=== PATIENT | female | born 1970 | race American Indian/Alaskan Native ===

== ENCOUNTER 2019-06-07 06:35 | Emergency (ER) | payer OTHER ==
[2019-06-07] MEDS ORDERED: MORPHINE IV ONE (07:01)
--- NOTE | 2019-06-07 07:02 | Emergency Department Report ---
ED General Adult HPI - General Chief complaint: Fall Stated complaint: NECK/BACK PAIN Time Seen by Provider: 06/07/19 06:52 Source: patient, EMS (verbal report received from EMS. EMS documentation was reviewed.), RN notes reviewed Mode of arrival: Stretcher Limitations: Physical Limitation - History of Present Illness Initial comments: This is a 49-year-old female, who is not known to this provider previously. The patient is brought to the hospital by EMS after a reported work-related incident. Patient reports that she was working at her job, when some boxes fell onto her. Apparently, the boxes were approximately 18 pounds, as per verbal report from EMS. The boxes hit her lower back. They did not hit any other part of her body. As per EMS documentation, patient was found fully immobilized on a long spinal board, and she was complaining of back pain after having 5-6 boxes fall onto her back, knocking her down onto the trailer floor. She did not have any loss of consciousness. Staff on scene advised the boxes were less than 18 pounds. 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 Patient indicated no symptoms prior to the reported accident. The patient indicates the pain is sharp and aching and throbbing, increases with palpation, decreases with rest. The patient makes no complaints of extremity weakness or numbness. The patient makes no complaint of saddle anesthesia. -: Sudden Location: back Radiation: non-radiation Quality: aching Consistency: constant Improves with: rest Worsens with: movement - Related Data Previous Rx's Medication Instructions Recorded Last Taken Type Acetaminophen [Non-Aspirin Extra 500 mg PO Q6HR PRN #30 tablet 06/07/19 Unknown Rx Strength] Ibuprofen [Motrin] 600 mg PO Q8H PRN #30 tablet 06/07/19 Unknown Rx Lidocaine [Lidoderm] 1 each TP QDAY PRN #5 adh..patch 06/07/19 Unknown Rx methOCARBAMOL [Robaxin TAB] 1,500 mg PO TID PRN #30 tab 06/07/19 Unknown Rx Allergies Allergy/AdvReac Type Severity Reaction Status Date / Time erythromycin base Allergy Unknown Verified 06/07/19 06:52 [From Erythrocin] ED Review of Systems ROS: Stated complaint: NECK/BACK PAIN Other details as noted in HPI Constitutional: denies: fever Eyes: denies: eye discharge ENT: denies: epistaxis Respiratory: denies: cough Cardiovascular: denies: syncope Gastrointestinal: denies: abdominal pain Musculoskeletal: back pain, myalgia Neurological: denies: weakness, numbness, paresthesias Psychiatric: anxiety ED Past Medical Hx - Medications Home Medications: Home Medications Medication Instructions Recorded Confirmed Last Taken Type Acetaminophen [Non-Aspirin Extra 500 mg PO Q6HR PRN #30 tablet 06/07/19 Unknown Rx Strength] Ibuprofen [Motrin] 600 mg PO Q8H PRN #30 tablet 06/07/19 Unknown Rx Lidocaine [Lidoderm] 1 each TP QDAY PRN #5 adh..patch 06/07/19 Unknown Rx methOCARBAMOL [Robaxin TAB] 1,500 mg PO TID PRN #30 tab 06/07/19 Unknown Rx ED Physical Exam - General Limitations: No Limitations General appearance: alert, anxious, in distress - Head Head exam: Present: atraumatic, normocephalic - Eye Eye exam: Present: normal appearance, EOMI. Absent: nystagmus - ENT ENT exam: Present: normal exam, normal orophraynx, mucous membranes moist, normal external ear exam - Neck Neck exam: Present: normal inspection, full ROM. Absent: tenderness, meningismus - Respiratory Respiratory exam: Present: normal lung sounds bilaterally. Absent: respiratory distress - Cardiovascular Cardiovascular Exam: Present: regular rate, normal rhythm, normal heart sounds. Absent: bradycardia, tachycardia, irregular rhythm, systolic murmur, diastolic murmur, rubs, gallop - GI/Abdominal GI/Abdominal exam: Present: soft. Absent: distended, tenderness, guarding, rebound, rigid, pulsatile mass - Extremities Exam Extremities exam: Present: normal inspection, full ROM, other (2+ pulses noted in the bilateral upper, lower extremities. Compartments soft. No long bony tenderness. The pelvis is stable.). Absent: pedal edema, joint swelling, calf tenderness - Back Exam Back exam: Present: normal inspection, full ROM, tenderness, paraspinal tenderness, vertebral tenderness, other (there is no midline cervical spine tenderness. There is no proximal thoracic tenderness. There is proximal lumbar spine tenderness. There is para lumbar spinal tenderness). Absent: CVA tenderness (R), CVA tenderness (L) - Neurological Exam Neurological exam: Present: alert, oriented X3, other (Extraocular movements intact. Tongue midline. No facial droop. Facial sensation intact to light touch in the V1, V2, V3 distribution bilaterally. 5 and 5 strength in 4 extremities.. Sensation is intact to light touch in 4 extremities.). Absent: motor sensory deficit - Psychiatric Psychiatric exam: Present: anxious - Skin Skin exam: Present: warm, dry, intact, normal color. Absent: rash ED Course Vital Signs 06/07/19 06/07/19 07:15 08:38 Temperature 98.3 F Pulse Rate 89 88 Respiratory 18 18 Rate Blood Pressure 121/69 Blood Pressure 116/78 [Left] O2 Sat by Pulse 100 99 Oximetry - Reevaluation(s) Reevaluation #1: 06/07/19 07:39 Differential diagnosis, including not limited to: Paraspinal pain, fracture, contusion, musculoskeletal pain Assessment and plan: 49-year-old female presenting with lower back pain after boxes fell onto her back. She is cleared from a back board. She is cleared from a cervical collar by myself.Patient is clinically sober at this time. The cervical spine is cleared through nexus and german c spine rule We will treat her pain, obtain objective imaging of the lumbar spine, and reassess. So far, no indication of traumatic spinal cord injury. Reevaluation #2: 06/07/19 09:27 Patient reassessed. Patient feels improved. Patient able to ambulate without significant difficulty. CT scan of the spine shows no acute traumatic disease. Chronic findings reviewed and suggested. Extensive discussion had with patient. 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 She is counseled to expect pain over the next few weeks to months. She verbalizes understanding. She will be discharged at this point in time. Return precautions are reviewed. We will discharge with pain medication, and local outpatient follow-up. ED Medical Decision Making - Lab Data Vital Signs 06/07/19 06/07/19 07:15 08:38 Temperature 98.3 F Pulse Rate 89 88 Respiratory 18 18 Rate Blood Pressure 121/69 Blood Pressure 116/78 [Left] O2 Sat by Pulse 100 99 Oximetry - Radiology Data Radiology results: report reviewed, image reviewed Print Report Referring Physician: MARNI ROJAS Patient Name: DILLAN ESQUIVEL Date of : 1970 Sex: Female Report Date: 2019-06-07 Report Status: Finalized Findings [facility] [address] [place] [address] Cat Scan Report Signed Patient: DILLAN ESQUIVEL MR#: [id number] : 1970 Acct:[id number] Age/Sex: 49 / F ADM Date: 06/07/19 Loc: ED Attending Dr: Ordering Physician: MARNI ROJAS MD Date of Service: 06/07/19 Procedure(s): CT lumbar spine wo con Accession Number(s): [id number] cc: MARNI ROJAS MD CT LUMBAR SPINE WITHOUT CONTRAST INDICATION: back pain blunt trauma, include t10 - t12. Patient notes that boxes fell on her work and now has lower back pain TECHNIQUE: Axial imaging performed through the lumbar without the use of contrast. Sagittal and coronal reconstructed images were also reviewed. All CT scans at this location are performed using CT dose reduction for ALARA by means of automated exposure control. COMPARISON: None FINDINGS: Alignment: There is 3 mm anterolisthesis of L4 with respect to L5 on the sagittal reconstructed images. Moderate to severe hypertrophic facet arthropathy is identified at this level. No pars defect is appreciated. The remaining lumbar vertebra are normal in height and alignment. Bones: There is no acute osseous abnormality. At L4-5 there is grade 1 anterolisthesis, mild diffuse posterior bulging disc and moderate to severe facet arthropathy. No central canal stenosis. Mild to moderate bilateral neural foraminal narrowing is estimated 50%. At L5-S1, there is moderate disc space narrowing with vacuum phenomenon. A mild diffuse posterior bulging disc is present lateralizing to both sides. Moderate to severe bilateral neural foraminal narrowing is estimated at 75%. The remaining levels of the lumbar spine are within normal limits. Soft tissues: No acute or significant incidental soft tissue abnormality. IMPRESSION: No acute injury is appreciated. Mild to moderate degenerative changes are identified at L4-5 and L5-S1 as outlined above which appears chronic in nature. If further evaluation is needed, MRI lumbar spine is recommended. Signer Name: Sudarshan Cooley Jr, MD Signed: 06/07/2019 9:01 AM Workstation Name: [id number] Transcribed By: TTR Dictated By: SUDARSHAN COOLEY JR, MD Electronically Authenticated By: SUDARSHAN COOLEY JR, MD Signed Date/Time: 06/07/19 0901 Critical care attestation.: If time is entered above; I have spent that time in minutes in the direct care of this critically ill patient, excluding procedure time. ED Disposition Clinical Impression: Back pain Qualifiers: Back pain location: low back pain Chronicity: acute Back pain laterality: bilateral Sciatica presence: without sciatica Qualified Code(s): M54.5 - Low back pain Disposition: TO HOME OR SELFCARE Is pt being admited?: No Does the pt Need Aspirin: No Condition: Stable Additional Instructions: As we discussed, pain typically gets worse before it gets better after mild blunt trauma. Rest, avoid heavy lifting, and avoid strenuous physical activity. Follow up with an appropriate Worker's Compensation physician, as designated by your employer. Alternatively, patient may elect to follow up with any of the listed local orthopedic physicians for continued management of back pain. However, because this is a work-related injury, Worker's Compensation may not pay for these visits. Therefore, the patient will need to clarify her policy on Worker's Compensation benefits with her respective employer. CT scan of the lumbar spine demonstrated multiple incidental chronic appearing findings, which should be followed up by her primary care physician, or Worker's Compensation physician within the next 7-10 days. Please follow-up with the Worker's Compensation physician within the next 5-7 days. Take the pain medication as needed/directed, if taking the Robaxin pain medication, do not drive, consume alcohol, or make important decisions. Please return to the emergency room right away with new, worsening or different symptoms not present on the initial emergency room evaluation. Prescriptions: Lidocaine [Lidoderm] 1 each TP QDAY PRN #5 adh..patch PRN Reason: Pain , Severe (7-10) Ibuprofen [Motrin] 600 mg PO Q8H PRN #30 tablet PRN Reason: Pain Acetaminophen [Non-Aspirin Extra Strength] 500 mg PO Q6HR PRN #30 tablet PRN Reason: Pain , Severe (7-10) methOCARBAMOL [Robaxin TAB] 1,500 mg PO TID PRN #30 tab PRN Reason: Pain Referrals: ZOYA PARNELL MD [Staff Physician] - 3-5 Days [facility] [Provider Group] - 3-5 Days Forms: Work/School Release Form(ED)
--- NOTE | 2019-06-07 09:06 | Cat Scan Report ---
CT LUMBAR SPINE WITHOUT CONTRAST INDICATION: back pain blunt trauma, include t10 -t12. Patient notes that boxes fell on her work and now has lower back pain TECHNIQUE: Axial imaging performed through the lumbar without the use of contrast. Sagittal and cor onal reconstructed images were also reviewed. All CT scans at this location are performed using CT d ose reduction for ALARA by means of automated exposure control. COMPARISON: None FINDINGS: Alignment: There is 3 mm anterolisthesis of L4 with respect to L5 on the sagittal reconstructed imag es. Moderate to severe hypertrophic facet arthropathy is identified at this level. No pars defect is appreciated. The remaining lumbar vertebra are normal in height and alignment. Bones: There is no acute osseous abnormality. At L4-5 there is grade 1 anterolisthesis, mild diffus e posterior bulging disc and moderate to severe facet arthropathy. No central canal stenosis. Mild to moderate bilateral neural foraminal narrowing is estimated 50%. At L5-S1, there is moderate disc spa ce narrowing with vacuum phenomenon. A mild diffuse posterior bulging disc is present lateralizing to both sides. Moderate to severe bilateral neural foraminal narrowing is estimated at 75%. The remaini ng levels of the lumbar spine are within normal limits. Soft tissues: No acute or significant incidental soft tissue abnormality. IMPRESSION: No acute injury is appreciated. Mild to moderate degenerative changes are identified at L4-5 and L5-S1 as outlined above which appear s chronic in nature. If further evaluation is needed, MRI lumbar spine is recommended. Signer Name: Sudarshan Cooley Jr, MD Signed: 06/07/2019 9:01 AM Workstation Name: [id number]
[2019-06-07] MEDS ORDERED: TORADOL IM ONE (09:26)
[2019-06-07] MEDS ORDERED: MORPHINE IM ONE (09:26)
[2019-06-07 10:18] VITALS: BP 125/75
== END 2019-06-07 10:17 | disposition home or self-care (01) ==
LOC: ED 06:35
DX: M54.5 Low back pain (principal); M54.2 Cervicalgia; Z91.041 Radiographic dye allergy status; W20.8XXA Other cause of strike by thrown, projected or falling object, initial encounter; Y93.89 Activity, other specified; Y92.69 Other specified industrial and construction area as the place of occurrence of the external cause; Y99.8 Other external cause status
CPT/HCPCS: 72131; 96372; 96374; 99284; J1885; J2270; 96376